=== PATIENT | male | born 1975 | race American Indian/Alaskan Native ===

== ENCOUNTER 2017-01-12 12:16 | Emergency (ER) | payer OTHER ==
--- NOTE | 2017-01-12 12:55 | Emergency Department Report ---
Chief Complaint: Extremity Injury, Lower Stated Complaint: BACK/BILAT LEG PAIN Time Seen by Provider: 01/12/17 12:51 - HPI History of Present Illness: pt c/o low back pain and leg swelling - ROS Review of Systems: - cp -sob + crepitus in knees - Exam Vital Signs: Vital Signs 01/12/17 12:51 Temperature 98.7 F Pulse Rate 96 H Respiratory 16 Rate Blood Pressure 142/81 O2 Sat by Pulse 100 Oximetry Physical Exam: + edema to ble + tenderness to midline lspine MSE screening note: Focused history and physical exam performed. Due to findings the following was ordered: us, lab xr ED Disposition for MSE Condition: Stable
--- NOTE | 2017-01-12 13:52 | XRay Report ---
AP AND LATERAL LUMBOSACRAL SPINE: History: Back pain. The vertebral bodies are well mineralized and normal in alignment and vertebral height with well preserved interspace distances. The visualized portions of the posterior elements are normal. Partial sacralization of L5 is noted. IMPRESSION: No evidence for acute injury. Congenital partial sacralization of L5.
--- NOTE | 2017-01-12 13:52 | XRay Report ---
BILATERAL KNEES, 2 VIEWS History: Bilateral knee pain. Findings: Mild medial compartment joint space narrowing is identified in both knees. There is no evidence for fracture, bone lesion or joint effusion. The soft tissues are unremarkable. Impression: Early osteoarthritic changes in both knees.
[2017-01-12 14:12] LABS: Basophils % (Auto) 0.8 % (0.0-1.8); Hematocrit 47.6 % (35.5-45.6); Hemoglobin 15.4 gm/dl (11.8-15.2); Mean Corpuscular HGB Conc 32 % (32-34); Mean Corpuscular Hemoglobin 28 pg (28-32); Mean Corpuscular Volume 86 fl (84-94); Platelet Count 246 K/mm3 (140-440); Red Blood Count 5.51 M/mm3 (3.65-5.03); Red Cell Distribution Width 13.6 % (13.2-15.2); White Blood Count 6.4 K/mm3 (4.5-11.0)
[2017-01-12 14:30] LABS: Anion Gap 20 mmol/L; BUN/Creatinine Ratio 15.71; Blood Urea Nitrogen 11 mg/dL (9-20); Carbon Dioxide 25 mmol/L (22-30); Chloride 97.9 mmol/L (98-107); Glucose 346 mg/dL (75-100); Potassium 4.8 mmol/L (3.6-5.0); Sodium 138 mmol/L (137-145)
--- NOTE | 2017-01-12 16:01 | Emergency Department Report ---
ED Back Pain/Injury HPI - General Chief Complaint: Back Pain/Injury Stated Complaint: BACK/BILAT LEG PAIN Time Seen by Provider: 01/12/17 12:51 Source: patient Limitations: No Limitations - History of Present Illness Initial Comments: 41-year-old male no medical history here with complaint of back pain and leg swelling for the past 2 days. Patient states he is on his feet all day and has been having worsening pain.The swelling getting worse over the last couple days. Denies chest pain shortness of breath abdominal pain. No fevers chills nausea vomiting. -: Gradual Similar Symptoms Previously: No Place: home Severity: mild Worsens With: none Associated Symptoms: numbness. denies: confusion, weakness, chest pain - Related Data Previous Rx's Medication Instructions Recorded Last Taken Type Ibuprofen [Motrin] 600 mg PO Q8H PRN #30 tablet 01/12/17 Unknown Rx metFORMIN [Glucophage] 500 mg PO BID #60 tablet 01/12/17 Unknown Rx Allergies Allergy/AdvReac Type Severity Reaction Status Date / Time No Known Allergies Allergy Verified 01/12/17 12:54 ED Review of Systems ROS: Stated complaint: BACK/BILAT LEG PAIN Other details as noted in HPI Comment: All other systems reviewed and negative Constitutional: denies: chills, fever Eyes: denies: eye pain, eye discharge, vision change ENT: denies: ear pain, throat pain Respiratory: denies: cough, shortness of breath, wheezing Cardiovascular: denies: chest pain, palpitations Endocrine: no symptoms reported Gastrointestinal: denies: abdominal pain, nausea, diarrhea Genitourinary: denies: urgency, dysuria Musculoskeletal: other (peripheral edema). denies: back pain, joint swelling, arthralgia Skin: denies: rash, lesions Neurological: denies: headache, weakness, paresthesias Psychiatric: denies: anxiety, depression Hematological/Lymphatic: denies: easy bleeding, easy bruising ED Past Medical Hx - Past Medical History Previous Medical History?: Yes Additional medical history: back - Surgical History Past Surgical History?: No - Family History Family history: no significant - Social History Smoking Status: Current Every Day Smoker Substance Use Type: None - Medications Home Medications: Home Medications Medication Instructions Recorded Confirmed Last Taken Type Ibuprofen [Motrin] 600 mg PO Q8H PRN #30 tablet 01/12/17 Unknown Rx metFORMIN [Glucophage] 500 mg PO BID #60 tablet 01/12/17 Unknown Rx ED Physical Exam - General Limitations: No Limitations General appearance: alert, in no apparent distress - Head Head exam: Present: atraumatic, normocephalic - Eye Eye exam: Present: normal appearance. Absent: scleral icterus, conjunctival injection - ENT ENT exam: Present: mucous membranes moist - Neck Neck exam: Present: normal inspection - Respiratory Respiratory exam: Present: normal lung sounds bilaterally. Absent: respiratory distress, wheezes, rales - Cardiovascular Cardiovascular Exam: Present: regular rate, normal rhythm. Absent: systolic murmur, diastolic murmur, rubs, gallop - GI/Abdominal GI/Abdominal exam: Present: soft, normal bowel sounds - Rectal Rectal exam: Present: deferred - Extremities Exam Extremities exam: Present: normal inspection, pedal edema (1+) - Back Exam Back exam: Present: normal inspection - Neurological Exam Neurological exam: Present: alert, oriented X3 - Psychiatric Psychiatric exam: Present: normal affect, normal mood - Skin Skin exam: Present: warm, dry, intact, normal color. Absent: rash ED Course Vital Signs 01/12/17 12:51 Temperature 98.7 F Pulse Rate 96 H Respiratory 16 Rate Blood Pressure 142/81 O2 Sat by Pulse 100 Oximetry ED Medical Decision Making - Lab Data Result diagrams: 01/12/17 13:51 01/12/17 13:51 Laboratory Results - last 24 hr 01/12/17 01/12/17 13:51 13:51 WBC 6.4 RBC 5.51 H Hgb 15.4 H Hct 47.6 H MCV 86 MCH 28 MCHC 32 RDW 13.6 Plt Count 246 Lymph % (Auto) 40.1 H [place] % (Auto) 8.8 H Eos % (Auto) 2.0 Baso % (Auto) 0.8 Lymph # 2.6 [place] # 0.6 Eos # 0.1 Baso # 0.1 Seg Neutrophils % 48.3 Seg Neutrophils # 3.1 Sodium 138 Potassium 4.8 Chloride 97.9 L Carbon Dioxide 25 Anion Gap 20 BUN 11 Creatinine 0.7 L Estimated GFR > 60 BUN/Creatinine Ratio 15.71 Glucose 346 H Calcium 9.0 NT-Pro-B Natriuret Pep 19.44 - Medical Decision Making Patient is a 41-year-old male here with back pain and peripheral edema. No other medical problems according the patient. His blood sugar is 346. He does not know that he is diabetic. Plan to start him on metformin and have the patient follow up with primary care. Discussed ways to treat his peripheral edema. Portions of this chart were dictated with dictation software. There may be dictation errors contained within this note. Critical care attestation.: If time is entered above; I have spent that time in minutes in the direct care of this critically ill patient, excluding procedure time. ED Disposition Clinical Impression: Peripheral edema Disposition: TO HOME OR SELFCARE Is pt being admited?: No Condition: Stable Instructions: Leg Edema (ED), Diabetes Mellitus Type 2 in Adults (ED) Prescriptions: Ibuprofen [Motrin] 600 mg PO Q8H PRN #30 tablet PRN Reason: Pain metFORMIN [Glucophage] 500 mg PO BID #60 tablet Referrals: PRIMARY CARE, [Primary Care Provider] - 3-5 Days
[2017-01-12 16:23] VITALS: BP 133/86
== END 2017-01-12 16:25 | disposition home or self-care (01) ==
LOC: ED 12:16
DX: R60.0 Localized edema (principal); F17.200 Nicotine dependence, unspecified, uncomplicated
CPT/HCPCS: 36415; 72100; 80048; 83880; 85025; 93970

== ENCOUNTER 2017-04-08 09:38 | Emergency (ER) | payer SELFPAY ==
[2017-04-08 10:18] LABS: Basophils % (Auto) 0.7 % (0.0-1.8); Eosinophils % (Auto) 0.9 % (0.0-4.3); Hemoglobin 14.7 gm/dl (11.8-15.2); Mean Corpuscular HGB Conc 33 % (32-34); Mean Corpuscular Hemoglobin 28 pg (28-32); Mean Corpuscular Volume 85 fl (84-94); Platelet Count 225 K/mm3 (140-440); Red Blood Count 5.29 M/mm3 (3.65-5.03); Red Cell Distribution Width 13.4 % (13.2-15.2); White Blood Count 11.2 K/mm3 (4.5-11.0)
[2017-04-08 10:40] LABS: Alanine Aminotransferase 12 units/L (7-56); Albumin/Globulin Ratio 1.4 %; Alkaline Phosphatase 83 units/L (35-129); Anion Gap 17 mmol/L; BUN/Creatinine Ratio 13; Blood Urea Nitrogen 8 mg/dL (9-20); Calcium 9.2 mg/dL (8.4-10.2); Carbon Dioxide 26 mmol/L (22-30); Chloride 96.6 mmol/L (98-107); Glucose 309 mg/dL (75-100); Potassium 4.3 mmol/L (3.6-5.0); Sodium 135 mmol/L (137-145); Total Protein 6.9 g/dL (6.3-8.2)
--- NOTE | 2017-04-08 10:44 | Emergency Department Report ---
ED Chest Pain HPI - General Chief Complaint: Chest Pain Stated Complaint: CHEST PAIN Time Seen by Provider: 04/08/17 10:29 Source: patient Mode of arrival: Stretcher Limitations: No Limitations - History of Present Illness Initial Comments: Patient states that while he was at work he noticed left arm numbness. When on for perhaps as long as an hour and then he developed tightness in his chest. He states he has not been evaluated for chest pain in the past. He is a type II diabetic. It is unknown as to whether he is compliant with his metformin. He smokes. He states that both his parents suffered from myocardial infarction. He was riding by EMS who gave her nitroglycerin. This was perhaps of some benefit. Patient states he now has minimal discomfort. He denies nausea vomiting sweating or acute dyspnea. He is fairly comfortable at this time. MD Complaint: chest pain -: Gradual, minutes(s) Onset: during exertion (initially while walking at work) Pain Location: left chest Pain Radiation: other (started with left arm discomfort and numbness) Severity: moderate, severe Quality: tightness Consistency: now resolved (largely resolved) Improves With: nitroglycerin (questionable) Worsens With: nothing re: denies: nausea, vomting, diaphoresis, dyspnea, sense of impending doom Other Symptoms: denies: cough, fever, syncope Treatments Prior to Arrival: aspirin, nitroglycerin Aspirin use within the Past 7 Days: (1) Yes - Related Data Previous Rx's Medication Instructions Recorded Last Taken Type metFORMIN [Glucophage] 500 mg PO BID #60 tablet 01/12/17 Unknown Rx Allergies Allergy/AdvReac Type Severity Reaction Status Date / Time No Known Allergies Allergy Verified 04/08/17 09:54 Heart Score - HEART Score History: Moderately suspicious EKG: Non-specific Age: < 45 Risk factors: > 3 risk factors or hx of atherosclerotic disease Troponin: < normal limit HEART Score: 4 ED Review of Systems ROS: Stated complaint: CHEST PAIN Other details as noted in HPI Constitutional: denies: chills, fever Eyes: denies: eye pain, eye discharge, vision change ENT: denies: ear pain, throat pain Respiratory: denies: cough, shortness of breath, wheezing Cardiovascular: chest pain. denies: palpitations Endocrine: no symptoms reported Gastrointestinal: denies: abdominal pain, nausea, diarrhea Genitourinary: denies: urgency, dysuria Musculoskeletal: denies: back pain, joint swelling, arthralgia Skin: denies: rash, lesions Neurological: denies: headache, weakness, paresthesias Psychiatric: denies: anxiety, depression Hematological/Lymphatic: denies: easy bleeding, easy bruising ED Past Medical Hx - Past Medical History Previous Medical History?: No Hx Diabetes: Yes Additional medical history: back - Surgical History Past Surgical History?: No - Family History Family history: CAD/PR - Social History Smoking Status: Current Every Day Smoker Substance Use Type: None - Medications Home Medications: Home Medications Medication Instructions Recorded Confirmed Last Taken Type metFORMIN [Glucophage] 500 mg PO BID #60 tablet 01/12/17 Unknown Rx ED Physical Exam - General Limitations: No Limitations General appearance: alert, in no apparent distress - Head Head exam: Present: atraumatic, normocephalic - Eye Eye exam: Present: normal appearance. Absent: scleral icterus - ENT ENT exam: Present: mucous membranes moist - Neck Neck exam: Present: normal inspection. Absent: tenderness, meningismus - Respiratory Respiratory exam: Present: normal lung sounds bilaterally. Absent: respiratory distress - Cardiovascular Cardiovascular Exam: Present: regular rate, normal rhythm. Absent: systolic murmur, diastolic murmur, rubs, gallop - GI/Abdominal GI/Abdominal exam: Present: soft, normal bowel sounds. Absent: distended, tenderness, guarding, rebound, rigid - Rectal Rectal exam: Present: deferred - Extremities Exam Extremities exam: Present: normal inspection - Back Exam Back exam: Present: normal inspection - Neurological Exam Neurological exam: Present: alert, oriented X3, CN II-XII intact. Absent: motor sensory deficit - Psychiatric Psychiatric exam: Present: normal affect, normal mood - Skin Skin exam: Present: warm, dry, intact. Absent: normal color (abdomen stable tattoos are noted to include both eyelids), rash ED Course Vital Signs 04/08/17 09:48 Temperature 99.2 F Pulse Rate 94 H Respiratory 17 Rate Blood Pressure 122/76 Blood Pressure 122/76 [Right] O2 Sat by Pulse 100 Oximetry - Reevaluation(s) Reevaluation #1: Nitro paste was applied. The patient is admitted to the hospitalist service by Dr. Johnson for further care and evaluation. He was given insulin subcutaneous. He is in stable condition. 04/08/17 12:00 ARIANA score - Ariana Score Age > 65: (0) No Aspirin use within the Past 7 Days: (1) Yes 3 or more CAD Risk Factors: (1) Yes 2 or more Angina events in past 24 hrs: (0) No Known CAD with more than 50% Stenosis: (0) No Elevated Cardiac Markers: (0) No ST Deviation Greater than 0.5mm: (0) No ARIANA Score: 2 ED Medical Decision Making - Lab Data Result diagrams: 04/08/17 10:00 04/08/17 09:59 Laboratory Results - last 24 hr 04/08/17 04/08/17 04/08/17 09:59 10:00 10:08 WBC 11.2 H RBC 5.29 H Hgb 14.7 Hct 45.0 MCV 85 MCH 28 MCHC 33 RDW 13.4 Plt Count 225 Lymph % (Auto) 17.8 [place] % (Auto) 11.1 H Eos % (Auto) 0.9 Baso % (Auto) 0.7 Lymph # 2.0 [place] # 1.2 H Eos # 0.1 Baso # 0.1 Seg Neutrophils % 69.5 Seg Neutrophils # 7.8 H Sodium 135 L Potassium 4.3 Chloride 96.6 L Carbon Dioxide 26 Anion Gap 17 BUN 8 L Creatinine 0.6 L Estimated GFR > 60 BUN/Creatinine Ratio 13 Glucose 309 H POC Glucose 320 H Calcium 9.2 Total Bilirubin 0.20 AST 11 ALT 12 Alkaline Phosphatase 83 Troponin T < 0.010 Total Protein 6.9 Albumin 4.0 Albumin/Globulin Ratio 1.4 - EKG Data -: EKG Interpreted by Me EKG shows normal: sinus rhythm, axis, intervals, QRS complexes, ST-T waves Rate: tachycardia - EKG Data When compared to previous EKG there are: no significant change (no change from prehospital EKG) Interpretation: nonspecific ST-T wave raheel - Radiology Data interpreted by me: Chest x-ray shows no acute process Critical care attestation.: If time is entered above; I have spent that time in minutes in the direct care of this critically ill patient, excluding procedure time. ED Disposition Clinical Impression: Chest pain Qualifiers: Chest pain type: unspecified Qualified Code(s): R07.9 - Chest pain, unspecified Hyperglycemia due to type 2 diabetes mellitus Qualifiers: Diabetes mellitus fdc insulin use: without fdc use Qualified Code(s ): E11.65 - Type 2 diabetes mellitus with hyperglycemia Disposition: 09 OP ADMIT IP TO THIS HOSP Is pt being admited?: Yes Does the pt Need Aspirin: Yes Condition: Stable Instructions: Chest Pain (ED), Diabetes Mellitus Type 2 in Adults (ED) Referrals: PRIMARY CARE,MD [Primary Care Provider] - 3-5 Days Time of Disposition: 12:09
[2017-04-08] MEDS ORDERED: NITRO-BID 2% TP ONE (11:21)
[2017-04-08] MEDS ORDERED: ASPIRIN PO ONE (11:21)
--- NOTE | 2017-04-08 11:37 | XRay Report ---
AP CHEST: History: Chest pain. AP view of the chest demonstrates a normal mediastinal and cardiac contour with clear lungs and normal bony and soft tissue structures. IMPRESSION: Normal AP chest.
[2017-04-08 17:08] LABS: Bilirubin,Urine NEG (Negative); Blood,Urine NEG (Negative); Ketones,Urine TR mg/dL (Negative); Leukocyte Esterase,Urine NEG (Negative); Mucus,Urine FEW /HPF; Nitrite,Urine NEG (Negative); WBC,Urine < 1.0 /HPF (0.0-6.0)
[2017-04-08 19:26] VITALS: BP 104/52
--- NOTE | 2017-04-08 19:40 | History and Physical Report ---
Medications and Allergies Allergies Allergy/AdvReac Type Severity Reaction Status Date / Time No Known Allergies Allergy Verified 04/08/17 09:54 Home Medications Medication Instructions Recorded Confirmed Last Taken Type metFORMIN [Glucophage] 500 mg PO BID #60 tablet 01/12/17 04/08/17 Unknown Rx Exam - Constitutional Vitals: Temp Pulse Resp BP Pulse Ox 99.3 F 87 18 104/52 97 04/08/17 19:00 04/08/17 19:00 04/08/17 19:00 04/08/17 19:00 04/08/17 19:00 Results - Labs CBC & Chem 7: 04/08/17 10:00 04/08/17 09:59 Labs: Abnormal lab results 04/08/17 04/08/17 04/08/17 Range/Units 09:59 10:00 10:08 WBC 11.2 H (4.5-11.0) K/mm3 RBC 5.29 H (3.65-5.03) M/mm3 [place] % (Auto) 11.1 H (0.0-7.3) % [place] # 1.2 H (0.0-0.8) K/mm3 Seg Neutrophils # 7.8 H (1.8-7.7) K/mm3 Sodium 135 L (137-145) mmol/L Chloride 96.6 L (98-107) mmol/L BUN 8 L (9-20) mg/dL Creatinine 0.6 L (0.8-1.5) mg/dL Glucose 309 H (75-100) mg/dL POC Glucose 320 H (70-105) Ur Specific [place] (1.003-1.030) 04/08/17 04/08/17 Range/Units 16:42 18:08 WBC (4.5-11.0) K/mm3 RBC (3.65-5.03) M/mm3 [place] % (Auto) (0.0-7.3) % [place] # (0.0-0.8) K/mm3 Seg Neutrophils # (1.8-7.7) K/mm3 Sodium (137-145) mmol/L Chloride (98-107) mmol/L BUN (9-20) mg/dL Creatinine (0.8-1.5) mg/dL Glucose (75-100) mg/dL POC Glucose 204 H (70-105) Ur Specific [place] 1.033 H (1.003-1.030)
== END 2017-04-08 22:35 | disposition home or self-care (01) ==
LOC: ED 09:38
DX: R07.89 Other chest pain (principal); E11.65 Type 2 diabetes mellitus with hyperglycemia; F17.210 Nicotine dependence, cigarettes, uncomplicated
CPT/HCPCS: 36415; 71010; 80053; 81001; 82962; 84484; 85025; 85379; 93005; 93010; 96372; 99285; J1815

== ENCOUNTER 2018-02-12 00:58 | Inpatient (IN) | payer SELFPAY ==
[2018-02-12 02:14] LABS: BUN/Creatinine Ratio 12; Blood Urea Nitrogen 11 mg/dL (9-20); Calcium 9.5 mg/dL (8.4-10.2); Hemolysis Index 1
[2018-02-12 02:45] LABS: Basophils # (Auto) 0.1 K/mm3 (0.0-0.1); Basophils % (Auto) 0.9 % (0.0-1.8); Eosinophils # (Auto) 0.1 K/mm3 (0.0-0.4); Hematocrit 41.6 % (35.5-45.6); Lymphocytes % (Auto) 33.9 % (13.4-35.0); Mean Corpuscular HGB Conc 34 % (32-34); Mean Corpuscular Hemoglobin 29 pg (28-32); Mean Corpuscular Volume 85 fl (84-94); Monocytes % (Auto) 11.8 % (0.0-7.3); Platelet Count 236 K/mm3 (140-440); Red Blood Count 4.91 M/mm3 (3.65-5.03); Red Cell Distribution Width 13.9 % (13.2-15.2)
--- NOTE | 2018-02-12 06:36 | Emergency Department Report ---
ED Chest Pain HPI - General Chief Complaint: Chest Pain Stated Complaint: CHEST PAIN Time Seen by Provider: 02/12/18 06:34 Source: patient Mode of arrival: Ambulatory Limitations: No Limitations - History of Present Illness Initial Comments: This is a 42-year-old male who I actually saw about a year ago with similar complaints. He describes tightness in his anterior chest which sometimes radiates down his left arm. His pain is nonpleuritic and nonexertional. He states that he doesn't experience any nausea vomiting or sweating during the episodes. He states he does experience some dizziness during these episodes. They do not occur very frequently. He has not followed up with a investment counselor since he was discharged by the hospitalist last year. He's had no stress testing. He had a similar episode with left arm radiation. His symptoms have resolved now. The duration of the episode was about an hour. He is a type II diabetic. He has no knowledge of his lipid status. MD Complaint: chest pain -: Gradual, minutes(s) Onset: during rest Pain Location: substernal Pain Radiation: LUE Severity: moderate Severity scale (0 -10): 0 Quality: tightness Consistency: now resolved Improves With: nothing Worsens With: nothing re: denies: nausea, vomting, diaphoresis Other Symptoms: denies: cough, fever, syncope Treatments Prior to Arrival: none Aspirin use within the Past 7 Days: (0) No - Related Data Previous Rx's Medication Instructions Recorded Last Taken Type metFORMIN [Glucophage] 500 mg PO BID #60 tablet 01/12/17 Unknown Rx Pantoprazole [Protonix] 40 mg PO QDAY #30 tablet 04/08/17 Unknown Rx Allergies Allergy/AdvReac Type Severity Reaction Status Date / Time No Known Allergies Allergy Verified 04/08/17 09:54 Heart Score - HEART Score History: Moderately suspicious EKG: Normal Age: 45-65 Risk factors: 1-2 risk factors Troponin: < normal limit HEART Score: 3 - Critical Actions Critical Actions: 0-3 pts:0.9-1.7%risk of adverse cardiac event.Candidate for discharge ED Review of Systems ROS: Stated complaint: CHEST PAIN Other details as noted in HPI Constitutional: denies: chills, fever Eyes: denies: eye pain, eye discharge, vision change ENT: denies: ear pain, throat pain Respiratory: denies: cough, shortness of breath, wheezing Cardiovascular: chest pain. denies: palpitations Endocrine: no symptoms reported Gastrointestinal: denies: abdominal pain, nausea, diarrhea Genitourinary: denies: urgency, dysuria Musculoskeletal: denies: back pain, joint swelling, arthralgia Skin: denies: rash, lesions Neurological: denies: headache, weakness, paresthesias Psychiatric: denies: anxiety, depression Hematological/Lymphatic: denies: easy bleeding, easy bruising ED Past Medical Hx - Past Medical History Previous Medical History?: Yes Hx Diabetes: Yes Additional medical history: back - Surgical History Past Surgical History?: No - Social History Smoking Status: Current Every Day Smoker Substance Use Type: None - Medications Home Medications: Home Medications Medication Instructions Recorded Confirmed Last Taken Type metFORMIN [Glucophage] 500 mg PO BID #60 tablet 01/12/17 02/12/18 Unknown Rx Pantoprazole [Protonix] 40 mg PO QDAY #30 tablet 04/08/17 02/12/18 Unknown Rx ED Physical Exam - General Limitations: No Limitations General appearance: alert, in no apparent distress - Head Head exam: Present: atraumatic, normocephalic. Absent: normal inspection - Eye Eye exam: Present: normal appearance. Absent: scleral icterus - ENT ENT exam: Present: mucous membranes moist - Neck Neck exam: Present: normal inspection. Absent: tenderness, meningismus - Respiratory Respiratory exam: Present: normal lung sounds bilaterally. Absent: respiratory distress - Cardiovascular Cardiovascular Exam: Present: regular rate, normal rhythm. Absent: systolic murmur, diastolic murmur, rubs, gallop - GI/Abdominal GI/Abdominal exam: Present: soft, normal bowel sounds. Absent: distended, tenderness, guarding, rebound, rigid - Rectal Rectal exam: Present: deferred - Extremities Exam Extremities exam: Present: normal inspection, full ROM, normal capillary refill. Absent: tenderness, pedal edema, joint swelling, calf tenderness - Back Exam Back exam: Present: normal inspection - Neurological Exam Neurological exam: Present: alert, oriented X3, CN II-XII intact. Absent: motor sensory deficit - Psychiatric Psychiatric exam: Present: normal affect, normal mood - Skin Skin exam: Present: warm, dry, intact, normal color. Absent: rash ED Course Vital Signs 02/12/18 02/12/18 02/12/18 01:19 01:22 04:45 Temperature 99.8 F H 99.8 F H 98.4 F Pulse Rate 99 H 98 H 70 Respiratory 14 17 19 Rate Blood Pressure 130/71 130/71 Blood Pressure 122/79 [Right] O2 Sat by Pulse 98 99 100 Oximetry 02/12/18 02/12/18 05:15 07:21 Temperature 98.1 F 98.1 F Pulse Rate 72 67 Respiratory 21 18 Rate Blood Pressure Blood Pressure 136/80 125/63 [Right] O2 Sat by Pulse 100 100 Oximetry - Reevaluation(s) Reevaluation #1: Remained stable in the emergency department. 02/12/18 08:14 ARIANA score - Ariana Score Age > 65: (0) No Aspirin use within the Past 7 Days: (1) Yes 3 or more CAD Risk Factors: (1) Yes 2 or more Angina events in past 24 hrs: (0) No Known CAD with more than 50% Stenosis: (0) No Elevated Cardiac Markers: (0) No ST Deviation Greater than 0.5mm: (0) No ARIANA Score: 2 ED Medical Decision Making - Lab Data Result diagrams: 02/12/18 01:36 02/12/18 01:36 Laboratory Results - last 24 hr 02/12/18 02/12/18 01:36 01:36 WBC 8.8 RBC 4.91 Hgb 14.0 Hct 41.6 MCV 85 MCH 29 MCHC 34 RDW 13.9 Plt Count 236 Lymph % (Auto) 33.9 [place] % (Auto) 11.8 H Eos % (Auto) 1.0 Baso % (Auto) 0.9 Lymph # 3.0 [place] # 1.0 H Eos # 0.1 Baso # 0.1 Seg Neutrophils % 52.4 Seg Neutrophils # 4.6 Sodium 141 Potassium 4.1 Chloride 101.6 Carbon Dioxide 26 Anion Gap 18 BUN 11 Creatinine 0.9 Estimated GFR > 60 BUN/Creatinine Ratio 12 Glucose 183 H Calcium 9.5 Troponin T < 0.010 - EKG Data -: EKG Interpreted by [place] EKG shows normal: sinus rhythm, axis, intervals, QRS complexes, ST-T waves Rate: normal - EKG Data Interpretation: other (there is probably lead reversal V2 for V3. There are some nonspecific changes. There is no evidence of acute ischemia. An old anteroseptal zone cannot be totally excluded but is not strongly suggestive. Voltage is increased) - Radiology Data Radiology results: report reviewed The heart size and vascularity appear normal. The lungs are clear. Pleural fluid is not seen. The bones and soft tissues reveal arthritic changes in the right AC joint. IMPRESSION: No acute cardiopulmonary process. Critical care attestation.: If time is entered above; I have spent that time in minutes in the direct care of this critically ill patient, excluding procedure time. ED Disposition Clinical Impression: Chest pain Qualifiers: Chest pain type: unspecified Qualified Code(s): R07.9 - Chest pain, unspecified Type 2 diabetes mellitus Qualifiers: Diabetes mellitus shelter insulin use: without moth exterminator use Diabetes mellitus complication status: without complication Qualified Code(s): E11.9 - Type 2 diabetes mellitus without complications Disposition: 09 OP ADMIT IP TO THIS HOSP Is pt being admited?: Yes Does the pt Need Aspirin: Yes Condition: Stable Instructions: Chest Pain (ED), Diabetes Mellitus Type 2 in Adults (ED) Referrals: PRIMARY CARE, [Primary Care Provider] - 3-5 Days Time of Disposition: 08:20
--- NOTE | 2018-02-12 06:55 | XRay Report ---
FINAL REPORT EXAM: XR CHEST 1V AP HISTORY: cp TECHNIQUE: A portable upright view the chest was submitted. FINDINGS: The heart size and vascularity appear normal. The lungs are clear. Pleural fluid is not seen. The bones and soft tissues reveal arthritic changes in the right AC joint. IMPRESSION: No acute cardiopulmonary process.
[2018-02-12 07:25] LABS: Alanine Aminotransferase 11 units/L (7-56); Albumin 3.8 g/dL (3.9-5)
[2018-02-12 07:33] LABS: INR 0.98 (0.87-1.13)
[2018-02-12 07:34] LABS: Bilirubin,Direct < 0.2 mg/dL (0-0.2)
[2018-02-12] MEDS ORDERED: ASPIRIN PO ONE (08:21)
--- NOTE | 2018-02-12 08:28 | History and Physical Report ---
History of Present Illness Date of examination: 02/12/18 Chief complaint: Chest pain History of present illness: 42-year-old -[place] male with past medical history significant for diabetes mellitus presented to the emergency department complaining of left- sided chest pain. Pain is dull, feeling of tightness, 9 out of 10 in intensity , with radiation to the left arm. Patient still had the pain but the intensity is went up and down. Patient denied associated shortness of breath, diaphoresis , fever, cough, leg swelling. No aggravating or alleviating factors identified. REVIEW OF SYSTEMS: GENERAL: no weight change, no fatigue, no fever HEAD: no head ache EYES: no blurry vision, no acute visual loss EARS: no hearing loss, no discharge, no earache NOSE: no stuffiness, no sneezing, no discharge MOUTH, THROAT AND NECK: no bleeding gums, no sore throat, no swollen neck CARDIAC: As stated in his HPI. RESPIRATORY: no shortness of breath, no wheeze, no cough, no sputum, no hemoptysis, no asthma GI: no decreased appetite, no nausea, no vomiting, no dysphagia, no diarrhea, no constipation, no abdominal pain URINARY: no change in frequency, no urgency, no polyuria, no hematuria, no incontinence MUSCULOSKELETAL: no muscle weakness, no pain, no joint stiffness NEUROLOGIC: no loss of sensation/numbness, no tingling, no tremors, no weakness/ paralysis HEMATOLOGIC: no anemia, no easy bruising SKIN: no rashes ENDOCRINE: no heat/cold intolerance, no polyuria, no polydipsia, no thyroid problems PSYCHIATRIC: no anxiety, no depression, no suicidal ideations Past History Past Medical History: diabetes Past Surgical History: No surgical history Social history: full code. denies: smoking (1 pack per day), alcohol abuse, prescription drug abuse, IV drug use Family history: stroke (mother) Medications and Allergies Allergies Allergy/AdvReac Type Severity Reaction Status Date / Time No Known Allergies Allergy Verified 04/08/17 09:54 Home Medications Medication Instructions Recorded Confirmed Last Taken Type metFORMIN [Glucophage] 500 mg PO BID #60 tablet 01/12/17 02/12/18 Unknown Rx Pantoprazole [Protonix] 40 mg PO QDAY #30 tablet 04/08/17 02/12/18 Unknown Rx Exam - Physical Exam Narrative exam: Not in cardiopulmonary distress. The patient is obese. Vital signs as documented. Head exam is unremarkable. No scleral icterus . Neck is without jugular venous distension, thyromegaly, or carotid bruits. Lungs are clear to auscultation. Cardiac exam reveals regular rate and Rhythm. First and second heart sounds normal. No murmurs, rubs or gallops. Abdominal exam reveals normal bowel sounds, no masses, no organomegaly and no aortic enlargement. Extremities are nonedematous and both femoral and pedal pulses are normal. COIL INSPECTOR: Alert and oriented 3. No focal weakness. - Constitutional Vitals: Temp Pulse Resp BP Pulse Ox 98.1 F 67 18 125/63 100 02/12/18 07:21 02/12/18 07:21 02/12/18 07:21 02/12/18 07:21 02/12/18 07:21 Results - Labs CBC & Chem 7: 02/12/18 01:36 02/12/18 01:36 Labs: Laboratory Last Values WBC 8.8 K/mm3 (4.5-11.0) 02/12/18 01:36 RBC 4.91 M/mm3 (3.65-5.03) 02/12/18 01:36 Hgb 14.0 gm/dl (11.8-15.2) 02/12/18 01:36 Hct 41.6 % (35.5-45.6) 02/12/18 01:36 MCV 85 fl (84-94) 02/12/18 01:36 MCH 29 pg (28-32) 02/12/18 01:36 MCHC 34 % (32-34) 02/12/18 01:36 RDW 13.9 % (13.2-15.2) 02/12/18 01:36 Plt Count 236 K/mm3 (140-440) 02/12/18 01:36 Lymph % (Auto) 33.9 % (13.4-35.0) 02/12/18 01:36 [place] % (Auto) 11.8 % (0.0-7.3) H 02/12/18 01:36 Eos % (Auto) 1.0 % (0.0-4.3) 02/12/18 01:36 Baso % (Auto) 0.9 % (0.0-1.8) 02/12/18 01:36 Lymph # 3.0 K/mm3 (1.2-5.4) 02/12/18 01:36 [place] # 1.0 K/mm3 (0.0-0.8) H 02/12/18 01:36 Eos # 0.1 K/mm3 (0.0-0.4) 02/12/18 01:36 Baso # 0.1 K/mm3 (0.0-0.1) 02/12/18 01:36 Seg Neutrophils % 52.4 % (40.0-70.0) 02/12/18 01:36 Seg Neutrophils # 4.6 K/mm3 (1.8-7.7) 02/12/18 01:36 PT 13.5 Sec. (12.2-14.9) 02/12/18 06:39 INR 0.98 (0.87-1.13) 02/12/18 06:39 APTT 30.0 Sec. (24.2-36.6) 02/12/18 06:39 D-Dimer < 135 ng/mlDDU (0-234) 02/12/18 06:39 Sodium 141 mmol/L (137-145) 02/12/18 01:36 Potassium 4.1 mmol/L (3.6-5.0) 02/12/18 01:36 Chloride 101.6 mmol/L (98-107) 02/12/18 01:36 Carbon Dioxide 26 mmol/L (22-30) 02/12/18 01:36 Anion Gap 18 mmol/L 02/12/18 01:36 BUN 11 mg/dL (9-20) 02/12/18 01:36 Creatinine 0.9 mg/dL (0.8-1.5) 02/12/18 01:36 Estimated GFR > 60 ml/min 02/12/18 01:36 BUN/Creatinine Ratio 12 % 02/12/18 01:36 Glucose 183 mg/dL (75-100) H 02/12/18 01:36 Calcium 9.5 mg/dL (8.4-10.2) 02/12/18 01:36 Magnesium 2.10 mg/dL (1.7-2.3) 02/12/18 06:39 Total Bilirubin 0.30 mg/dL (0.1-1.2) 09/15/18 06:39 Direct Bilirubin < 0.2 mg/dL (0-0.2) 02/12/18 06:39 Indirect Bilirubin 0.1 mg/dL 02/12/18 06:39 AST 14 units/L (5-40) 02/12/18 06:39 ALT 11 units/L (7-56) 02/12/18 06:39 Alkaline Phosphatase 65 units/L (35-129) 02/12/18 06:39 Troponin T < 0.010 ng/mL (0.00-0.029) 02/12/18 06:54 NT-Pro-B Natriuret Pep 35.51 pg/mL (0-450) 02/12/18 06:39 Total Protein 6.6 g/dL (6.3-8.2) 02/12/18 06:39 Albumin 3.8 g/dL (3.9-5) L 02/12/18 06:39 Albumin/Globulin Ratio 1.4 % 02/12/18 06:39 Assessment and Plan Assessment and plan: 42-year-old male with past medical history significant for diabetes mellitus presented to the emergency department complaining of chest pain with radiation to the left arm Chest pain - 2 sets of Troponins were negative, EKG no ST elevation KS - Stress test ordered Hyperlipidemia - Patient started on atorvastatin Diabetes mellitus type 2 - Sliding scale insulin, Accu-Chek, ADA diet DVT and GI prophylaxis - On Lovenox and pantoprazole Disposition - Admit to telemetry floor
[2018-02-12] MEDS ORDERED: D50W (25GM) Syringe IV PRN (08:29)
[2018-02-12 08:59] LABS: Chol/HDL Ratio 5.07 %
[2018-02-12] MEDS: ASPIRIN PO SCH (09:56)
[2018-02-12] MEDS: HumaLOG SUB-Q SCH ×3 (11:07→21:57)
[2018-02-12] MEDS: HABITROL TD SCH (17:03)
[2018-02-12] MEDS: PROTONIX PO SCH (17:03)
[2018-02-12] MEDS: LOVENOX SUB-Q SCH (18:03)
[2018-02-12] MEDS ORDERED: MORPHINE IV PRN (21:23)
[2018-02-13] MEDS: NITRO-BID 2% TP SCH ×3 (00:59→11:55)
[2018-02-13 05:05] LABS: BUN/Creatinine Ratio 17; Blood Urea Nitrogen 12 mg/dL (9-20); Calcium 8.8 mg/dL (8.4-10.2); Hemolysis Index 8
[2018-02-13] MEDS: HumaLOG SUB-Q SCH ×2 (07:30→11:45)
[2018-02-13] MEDS ORDERED: LEXISCAN IV ONE ×2 (08:05→08:07)
[2018-02-13] MEDS: ASPIRIN PO SCH (11:47)
[2018-02-13] MEDS: LOVENOX SUB-Q SCH (11:53)
[2018-02-13] MEDS: PROTONIX PO SCH (11:54)
[2018-02-13] MEDS: HABITROL TD SCH (11:56)
--- NOTE | 2018-02-13 11:57 | Discharge Summary ---
Providers - Providers Date of Admission: 02/12/18 09:50 Attending physician: MICHELLE HA MD Primary care physician: PLUGGER Hospitalization Reason for admission: chest pain Condition: Stable Disposition: DC-01 TO HOME OR SELFCARE Time spent for discharge: 32 minutes - Discharge Diagnoses (1) Chest pain Status: Acute Qualifiers: Chest pain type: unspecified Qualified Code(s): R07.9 - Chest pain, unspecified (2) Type 2 diabetes mellitus Status: Acute Qualifiers: Diabetes mellitus fpc insulin use: without fpc use Diabetes mellitus complication status: without complication Qualified Code(s): E11.9 - Type 2 diabetes mellitus without complications (3) GERD (gastroesophageal reflux disease) Status: Acute Core Measure Documentation - Palliative Care Palliative Care/ Comfort Measures: Not Applicable - Core Measures Any of the following diagnoses?: none Exam - Physical Exam Narrative exam: Not in cardiopulmonary distress. The patient is obese. Vital signs as documented. Head exam is unremarkable. No scleral icterus . Neck is without jugular venous distension, thyromegaly, or carotid bruits. Lungs are clear to auscultation. Cardiac exam reveals regular rate and Rhythm. First and second heart sounds normal. No murmurs, rubs or gallops. Abdominal exam reveals normal bowel sounds, no masses, no organomegaly and no aortic enlargement. Extremities are nonedematous and both femoral and pedal pulses are normal. WELDER/FITTER: Alert and oriented 3. No focal weakness. - Constitutional Vitals: Temp Pulse Resp BP Pulse Ox 98.1 F 77 16 114/70 98 02/13/18 11:37 02/13/18 11:37 02/13/18 11:37 02/13/18 11:37 02/13/18 11:37 Plan Activity: no restrictions Weight Bearing Status: Full Weight Bearing Diet: low cholesterol, diabetic Additional Instructions: F/U at [facility] in 1-2 weeks. Follow up with: PRIMARY CARE, [Primary Care Provider] - 3-5 Days Prescriptions: AtorvaSTATin [Lipitor] 20 mg PO QHS #30 tablet Pantoprazole [Protonix TAB] 40 mg PO QDAY #30 tablet
[2018-02-13 16:34] VITALS: BP 116/60
--- NOTE | 2018-02-13 23:25 | Treadmill Report ---
NUCLEAR CARDIAC TREADMILL STRESS REPORT INDICATION FOR PROCEDURE: Chest pain. The baseline electrocardiogram demonstrates sinus rhythm with isoelectric ST segments. The patient exercised according to the Ad protocol for 10 minutes and 45 seconds. The baseline heart rate was 80 with a blood pressure of 147/74. The patient exercised to a heart rate of 161 and a maximum blood pressure of 208/95. The patient achieved 90% of the maximum predicted heart rate response and attained a workload of 11.3 mets. Exercise was limited by fatigue. The electrocardiographic response demonstrates no significant ischemic repolarization abnormalities either during exercise or in the recovery phase. Rest and stress nuclear cardiac imaging was performed following the intravenous administration of 10 and 28 mCi of technetium-99m Myoview respectively per protocol. Images were obtained in a 180-degree arc from 45 degrees PRUETT to 45 degrees LPO. After data acquisition and reconstruction, the images were processed and reoriented into the vertical long, horizontal long, and horizontal short axis slices. A polar color map of the horizontal short axis slices was generated and reviewed. The rotating planar images reviewed in cinematic format on the computer console. Gated SPECT imaging demonstrates a post-stress left ventricular ejection fraction of 51% with normal wall motion. Myocardial perfusion imaging demonstrates no significant cavity change between stress and rest. No significant stress induced perfusion defects are seen. The exercise test is clinically and electrocardiographically nonischemic. The patient exhibited excellent exercise tolerance. Nuclear cardiac imaging demonstrates grossly normal left ventricular systolic function with no significant evidence for myocardial ischemia or necrosis. JOB# [id number] REG/DORINA
== END 2018-02-13 18:14 | disposition home or self-care (01) | DRG 313 ==
LOC: ED 00:58 → 4A 09:50
PROVIDERS: ADMIT Internal Medicine; ATTEND Internal Medicine
DX: R07.9 Chest pain, unspecified (principal); E11.9 Type 2 diabetes mellitus without complications; F17.210 Nicotine dependence, cigarettes, uncomplicated; E78.5 Hyperlipidemia, unspecified; K21.9 Gastro-esophageal reflux disease without esophagitis; Z71.6 Tobacco abuse counseling; Z79.84 Long term (current) use of oral hypoglycemic drugs; Z82.3 Family history of stroke
CPT/HCPCS: 36415; 71045; 78452; 80048; 80061; 80074; 82962; 83735; 83880; 84484; 85025; 85379; 85610; 85730; 93005; 93010; 93017; 99406; A9270-GY; A9502; J1650; J1815; J2270; J2785

== ENCOUNTER 2018-03-03 08:59 | Emergency (ER) | payer SELFPAY ==
[2018-03-03] MEDS ORDERED: TORADOL IM ONE (09:28)
--- NOTE | 2018-03-03 09:28 | Emergency Department Report ---
ED Lower Extremity HPI - General Chief Complaint: Extremity Injury, Lower Stated Complaint: LT ANKLE PAIN Source: patient Mode of arrival: Ambulatory Limitations: Other - History of Present Illness Initial Comments: This is a 42-year-old -[place] male who presents with left ankle pain from a work related accident. 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 Patient reports pain and swelling that is worse with movement and weight bearing. He reports pain as 9/10 on pain scale that is intermittent. He iced and applied [place] wrap to area with improvement of swelling. Patient denies numbness or tinging, deformity, erythema, fever, and warmth. MD Complaint: ankle injury (left) Onset/Timin -: days(s) Injury: Ankle: Left Type of Injury: blunt Place: work Severity: severe Severity scale (0 -10): 10 Improves With: cold therapy, immobilization, rest Worsens With: weight bearing, movement, palpation Context: direct blow Associated Symptoms: snap/pop sensation, swelling, able to partially bear weight , ambulatory. denies: numbness, unable to bear weight Treatments Prior to Arrival: cold therapy, bandage - Related Data Previous Rx's Medication Instructions Recorded Last Taken Type metFORMIN [Glucophage] 500 mg PO BID #60 tablet 01/12/17 Unknown Rx AtorvaSTATin [Lipitor] 20 mg PO QHS #30 tablet 02/13/18 Unknown Rx Pantoprazole [Protonix TAB] 40 mg PO QDAY #30 tablet 02/13/18 Unknown Rx Ibuprofen [Motrin 800 MG tab] 800 mg PO Q8HR PRN #10 tablet 03/03/18 Unknown Rx Allergies Allergy/AdvReac Type Severity Reaction Status Date / Time No Known Allergies Allergy Verified 03/03/18 09:15 ED Review of Systems ROS: Stated complaint: LT ANKLE PAIN Other details as noted in HPI Constitutional: denies: chills, fever Respiratory: denies: cough, shortness of breath, wheezing Cardiovascular: denies: chest pain, palpitations Gastrointestinal: denies: abdominal pain, nausea, diarrhea Musculoskeletal: joint swelling (left ankle), arthralgia (left ankle). denies: back pain Skin: denies: rash, lesions Neurological: denies: headache, weakness, paresthesias Psychiatric: denies: anxiety, depression ED Past Medical Hx - Past Medical History Hx Congestive Heart Failure: No Hx Diabetes: Yes Hx Asthma: No Hx COPD: No Hx HIV: No Additional medical history: back - Surgical History Past Surgical History?: No - Social History Smoking Status: Current Every Day Smoker Substance Use Type: None - Medications Home Medications: Home Medications Medication Instructions Recorded Confirmed Last Taken Type metFORMIN [Glucophage] 500 mg PO BID #60 tablet 01/12/17 02/12/18 Unknown Rx AtorvaSTATin [Lipitor] 20 mg PO QHS #30 tablet 02/13/18 Unknown Rx Pantoprazole [Protonix TAB] 40 mg PO QDAY #30 tablet 02/13/18 Unknown Rx Ibuprofen [Motrin 800 MG tab] 800 mg PO Q8HR PRN #10 tablet 03/03/18 Unknown Rx ED Physical Exam - General Limitations: Other General appearance: alert, in no apparent distress - Respiratory Respiratory exam: Present: normal lung sounds bilaterally. Absent: respiratory distress - GI/Abdominal GI/Abdominal exam: Present: soft, normal bowel sounds - Extremities Exam Extremities exam: Present: normal capillary refill. Absent: calf tenderness - Expanded Lower Extremity Exam Left Hip exam: Present: normal inspection, full ROM Upper Leg exam: Present: normal inspection, full ROM Knee exam: Present: normal inspection, full ROM Lower Leg exam: Present: normal inspection, full ROM Ankle exam: Present: tenderness, swelling (medial melleolus). Absent: full ROM (limited ROM 2/2 pain), abrasion, laceration, ecchymosis, deformity, crepidus, dislocation, erythema, anterior draw sign Foot/Toe exam: Present: normal inspection, full ROM Neuro vascular tendon exam: Present: no vascular compromise Gait: Positive: observed and limited by pain - Neurological Exam Neurological exam: Present: alert, oriented X3 - Psychiatric Psychiatric exam: Present: normal affect, normal mood - Skin Skin exam: Present: warm, dry, intact, normal color. Absent: rash ED Course Vital Signs 03/03/18 03/03/18 03/03/18 09:15 09:47 10:14 Temperature 99.3 F 97.5 F L Pulse Rate 81 88 Respiratory 18 20 18 Rate Blood Pressure 129/65 Blood Pressure 132/68 [Right] O2 Sat by Pulse 97 98 Oximetry ED Lower Extremity MDM - Radiology Data Radiology results: report reviewed, image reviewed - Medical Decision Making Patient was examined by me and screened by Dr. Ceja. Vitals are normal and patient is in no acute distress. Patient given toradol 30 mg IM once while in ER. Obtained a x-ray of left ankle. X-rays dictated by radiologist and report reviewed by myself. Patient informed of results. Physical findings susceptible of ankle sprain. Posterior ankle splint applied to left ankle and patient given crutches with education. Start ibuprofen 800 mg po qid prn for pain. Plan discussed with patient to discharge home and treat outpatient. He agrees with ER plan. Patient discharged home in stable condition. Follow up with PCP in 2-3 days. Critical care attestation.: If time is entered above; I have spent that time in minutes in the direct care of this critically ill patient, excluding procedure time. ED Disposition Clinical Impression: Left ankle pain Qualifiers: Chronicity: acute Qualified Code(s): M25.572 - Pain in left ankle and joints of left foot High ankle sprain of left lower extremity Qualifiers: Encounter type: initial encounter Qualified Code(s): S93.432A - Sprain of tibiofibular ligament of left ankle, initial encounter Disposition: TO HOME OR SELFCARE Is pt being admited?: No Does the pt Need Aspirin: No Condition: Stable Instructions: Ankle Sprain (ED), Ankle Exercises (GEN) Additional Instructions: Rest Use ice or heat on affected area for 20 minutes and off for 2 hours. Elevated left leg while sitting to decrease swelling. Take pain medication as needed for pain. Follow up with Primary Care Provider in 2-3 days. Prescriptions: Ibuprofen [Motrin 800 MG tab] 800 mg PO Q8HR PRN #10 tablet PRN Reason: Pain , Severe (7-10) Referrals: [facility] [Outside] - 3-5 Days [facility] [Outside] - 3-5 Days [facility] [Outside] - 3-5 Days Forms: Work/School Release Form(ED) Time of Disposition: 09:58 Print Language: ARGENTINE
--- NOTE | 2018-03-03 09:51 | Emergency Department Report ---
Blank Doc - Documentation Documentation: [id number] was done by me. I agree with the DrJulisa dictation by Ms. Sutton. Patient's ankle does show some mild swelling and some medial tenderness. X-ray reviewed by me and is negative for fracture but patient does have significant amount of soft tissue swelling. Patient placed in ankle stirrup and Dante wrap and given instructions for rice therapy will be discharged home.
[2018-03-03 10:15] VITALS: BP 132/68
--- NOTE | 2018-03-03 10:35 | XRay Report ---
LEFT ANKLE, 3 views: History: Swelling and pain. Bone mineralization is normal. No acute osseous abnormality or joint pathology is identified. The soft tissues are unremarkable. IMPRESSION: Normal study.
== END 2018-03-03 10:14 | disposition home or self-care (01) ==
LOC: ED 08:59
DX: S93.432A Sprain of tibiofibular ligament of left ankle, initial encounter (principal); E11.9 Type 2 diabetes mellitus without complications; F17.200 Nicotine dependence, unspecified, uncomplicated; Z79.84 Long term (current) use of oral hypoglycemic drugs; W22.8XXA Striking against or struck by other objects, initial encounter; Y93.89 Activity, other specified; Y92.69 Other specified industrial and construction area as the place of occurrence of the external cause; Y99.8 Other external cause status
CPT/HCPCS: 29515; 73610; 96372; 99283; J1885